=== PATIENT | male | born 1955 | race Caucasian/White ===

== ENCOUNTER 2017-07-14 09:26 | Inpatient (IN) | payer MEDICARE, OTHER ==
[~2017-07-14] VITALS: Ht 195.6 cm; Wt 136.1 kg
[~2017-07-14 09:26] MED LIST: ADULT LOW DOSE81 MG PO; BUPROPION XL300 MG PO; FENOFIBRATE48 MG PO; HYDROCHLOROTHIA25 MG PO; HYDROCODON-ACE1 EA10 PO; LISINOPRIL40 MG PO; MELOXICAM15 MG PO; METHOCARBAMOL750 MG PO; METOPROLOL SUCC25 MG PO; NITROSTAT0.4 MG SL; NORVASC5 MG PO; ZYLOPRIM300 MG PO
--- NOTE | 2017-07-28 09:55 | NUR ---
PT RETURNED FROM PACU ([id number]). PT AWAKE AND RESPONDING APPROPRIATLY TO QUESTIONS. SPINAL LEVEL AT T12. PT DENIES PAIN AND NAUSEA. PT TOLERATING SIPS OF WATER. PT VERBALIEZES UNDERSTANDING OF VOIDING EXPECTATIONS AND FALL PREVENTION. PT STATES HE WILL CALL IF HE FEELS LIKE HE NEEDS TO MOVE AT ALL. PT STATES NO REQEUSTS OR COMPLAINTS AT THIS TIME. BED RAILS UP, CALL LIGHT WITHIN REACH.
--- NOTE | 2017-07-28 10:03 | NUR ---
07/28/17 1003 Cynthia Hood 0900 RESP EVEN AND UNLABORED. PT DENINES PAIN AND NAUSEA. 0903 O2 REMOVED. VSS. 0910 XRAY AT [facility], CRYO CUFF IN PLACE. 09 MD AT [facility]. 0940 VSS HEADED TO [facility].
--- NOTE | 2017-07-28 10:40 | NUR ---
DAY SURGERY CALLED TO ASK TO COME TO MED/SURG PT ROOM. ARRIVED AND WAS WALKED TO PT ROOM. VISITING WITH PT. NO REQUESTS OR COMPLAINTS AT THIS TIME.
--- NOTE | 2017-07-28 11:00 | NUR ---
VITALS TAKEN. PT RESTING COMFORTABLY, DENIES PAIN AND NAUSEA. HEEL PROTECTORS PLACED. AT BEDSIDE. PT VISITING WITH . BED RAILS UP. CALL LIGHT WITHIN REACH.
--- NOTE | 2017-07-28 11:08 | NUR ---
INSENTIVE SPIROMETER PROVIDED FOR PT. EDUCATION ON USE GIVEN. PT DEMONSTRATES UNDERSTANDING. PT CONTINUES VISITING WITH . BED RAILS US. CALL LIGHT WITHIN REACH. BED ALARM ON.
--- NOTE | 2017-07-28 11:11 | OR ---
[facility] [place] [facility] [address], [place] [address] Signed DATE OF OPERATION: 07/28/2017 SURGEON: Sony Dao MD PREOPERATIVE DIAGNOSIS: Degenerative joint disease, severe right hip. POSTOPERATIVE DIAGNOSIS: Degenerative joint disease, severe right hip. PROCEDURE PERFORMED: Right total hip arthroplasty. STUDIO TECHNICIAN: Emma Richardson PA-C. Emma was critical for positioning and retraction and wound closure. ANESTHESIA: Spinal. BLOOD LOSS: 250 mL. IMPLANTS: Salazar secure fit advanced, size 9 stem, 60 mm PSL cup, and a +2.5 ceramic head. BRIEF HISTORY: Darian is a 61-year-old gentleman with end-stage arthritis in his hip. He had failed nonoperative treatment and wished to proceed with operative. Once medical clearance was obtained, he was taken to the operating room. After adequate anesthesia, he was placed on operating room table. All downside pressure points were well padded. He was placed in left lateral decubitus position. Axillary roll was placed. The leg was then prepped and draped in a standard sterile fashion up to the iliac crest. The hip was approached with the anterior lateral approach through a 6 inch incision. This was eventually extended to 7. It was taken through the skin and subcutaneous tissue. IT band was split longitudinally. The vastus lateralis was then split from the tip of the trochanter distally and elevated subperiosteally around the level of the lesser trochanter. Bleeders were cauterized as we went. The gluteus medius was split bluntly. Gluteus minimus and capsule were split sharply from the tip of the trochanter to the acetabulum. The capsule was quite thick and a posterior capsulotomy was performed. Electronically Signed By: SONY DAO MD 07/28/17 1111 PATIENT NAME: DARIAN ARNETT OPERATIVE REPORT DATE OF : 55 PHYSICIAN: SONY DAO MD REPORT #: [id number] REPORT IS CONFIDENTIAL AND NOT TO BE RELEASED WITHOUT AUTHORIZATION [facility] [place] [facility] [address], [place] [address] Signed Partial posterior capsulotomy was performed. The hip was then dislocated and the femoral neck cut was made 1 fingerbreadth above the lesser trochanter. The femoral head was removed. The periacetabular soft tissue was removed. There was extensive thickening of the labrum and capsule. The acetabulum was reamed starting with 46 going up to 60. The 60 cup was impacted in 45 degrees of abduction and 15 degrees of anteversion. It was quite stable. However, we did go ahead and place a screw in the posterior superior quadrant. The acetabular liner was then impacted in position. Attention was then turned to the proximal tibia. Proximal tibia was opened using vuie cutter followed by the Charaubrieey awl. It was then sequentially reamed up to a 10, 11 and broached up to a 9. The 9 was well fitting and left in position. The standard offset neck and posterior head were positioned. Hip was then reduced and taken through range of motion. It was a little bit loose, but otherwise had great range of motion. There was no impingement. The hip was dislocated again and the femoral trials were removed. The final stem was impacted until it was well seated at the same level as the trial. The +2.5 mm ceramic head was then positioned and impacted. The hip was reduced. It was quite tight at that point and had good range of motion. The wound was copiously irrigated at intervals throughout the procedure. A total of 3 L antibiotic irrigation was used. The periarticular soft tissues were injected with 100 mL ropivacaine and Toradol mixture. The hip capsule was then repaired using #1 Vicryl. The vastus lateralis and IT bands were repaired independently using #2 Stratafix, subcutaneous tissue with 0 Stratafix, and the skin with jorge l. Wound was dressed with a Mepilex Ag dressing, Opsite, and hip spica dressing. He was awakened and taken to recovery room in satisfactory condition. All sponge, needle, and instrument counts were correct. Sony Dao MD [id number] /[id number] Electronically Signed By: SONY DAO MD 07/28/17 1111 PATIENT NAME: DARIAN ARNETT OPERATIVE REPORT DATE OF : 55 PHYSICIAN: SNOY DAO MD REPORT #: [id number] REPORT IS CONFIDENTIAL AND NOT TO BE RELEASED WITHOUT AUTHORIZATION
--- NOTE | 2017-07-28 12:00 | NUR ---
VITALS TAKEN. PT EATING CLEAR LIQUIDS TRAY. PT CONTINUES TO DENY PAIN AND NAUSEA. SURGICAL SITE CLEAN, DRY AND INTACT. [facility] CHECK WNL. PT USING IS. PT ENCOURAGED TO LET THE NURSE KNOW IF HE BEGINS TO HAVE PAIN. PT STATES NO REQUESTS OR COMPLAINTS AT THIS TIME. BED RAILS UP, BED ALARM ON. CALL LIGHT WITHIN REACH.
[2017-07-28] MEDS ORDERED: METOPROLOL SUCC50 MG PO (12:22)
--- NOTE | 2017-07-28 12:47 | NUR ---
VITALS TAKEN PER ORDER. PT CONTINUES TO DENY PAIN AND NAUSEA. PT REPORTS ITCHING AND WOULD LIKE MEDICATION (SEE MAR FOR MEDICATION GIVEN). [facility] CHECK, WNL. BANDAGE CDI. CRYO CUFF IN PLACE. ABDUCTOR PILLOW IN PLACE. BED RAILS UP. CALL LIGHT WITHIN REACH.
--- NOTE | 2017-07-28 14:02 | NUR ---
ASSESSEMENT PERFORMED, VITALS DUE AND TAKEN. PT STILL UNABLE TO VOID. BLADDER SCAN PERFORMED, 301ML IN BLADDER. PT EDUCATION DONE R/T VOIDING. PT ADVISED THAT WE WILL RESCAN BLADDER IN ANOTHER HOUR. [facility] CHECK WNL. DRESSING CDI. CRYO CUFF IN PLACE, ABDUCTOR PILLOW IN PLACE. PT STATES "THE ITCHING IS MUCH BETTER NOW." BED RAILS UP, CALL LIGHT WITHIN REACH. PT HAS NO ADDITIONAL REQUESTS OR COMPLAINTS AT THIS TIME.
--- NOTE | 2017-07-28 14:56 | NUR ---
TYLENOL AND ANCEF GIVEN ORDERED (SEE MAR). PT RESTING WITH EYES CLOSED, RR 14 BPM. PT CONTINUES TO DENY PAIN AND NAUSEA. PT STATES HE IS READY TO GET UP AND MOVE AROUND SOON. RT NOTIFIED. BED RAILS UP. CALL LIGHT WITHIN REACH.
--- NOTE | 2017-07-28 15:40 | NUR ---
PT CALL LIGHT ON. PT REPORTS FEELING NAUSEATED. PT HAS NOT VOMITIED. EMISIS BAG PROVIDED. HEAD OF BED ELEVATED. ARMATURE WINDER REPAIR CALLED FOR ZOFRAN ORDER. CRAN ORDERS 4MG ZOFRAN IV ONCE. GIVEN ORDERED.
--- NOTE | 2017-07-28 15:54 | NUR ---
PT REPORTS IMPROVEMENTS IN NAUSEA. PT AT BEDSIDE. PT AMBULATING WITH PT. WITH PT. PT DENIES PAIN. MD STOPPED BY THE ROOM TO SEE PT. MD PLANS TO RETURN WHEN HE FINISHES HIS WALK.
--- NOTE | 2017-07-28 16:28 | NUR ---
PT RETURNED FROM WALK WITH PT. PT CONTINUES TO DENY PAIN AND REPORTS NO NAUSEA. MEDICATION GIVEN ORDERED (SEE MAR). PT RETURNED TO BED. SCDS ON, CRYO CUFF ON, IV INFUSING ORDERED. ABDUCTOR PILLOW IN PLACE. BED RAILS UP. CALL LIGHT WITHIN REACH. AT BEDSIDE. PT TALKING WITH PHARMACIST. NO REQUESTS OR COMPLAINTS AT THIS TIME.
--- NOTE | 2017-07-28 16:34 | NUR ---
CALLED R/T LACK OF VOID. STATES TO CONTINUE TO OBSERVE PT FOR "ANOTHER COUPLE HOURS" AND THEN PROCEED WITH ORDER FOR LARA IF NECESSARY.
--- NOTE | 2017-07-28 16:54 | NUR ---
FULL ASSESSMENT DONE. PT NOW DENIES NAUSEA BUT REPORTS 6/10 "ARTHRITIS" PAIN IN HIS NECK AND FINGERS. PT STATES THIS PAIN IS TOLERABLE AND THAT "I FEEL REALLY GOOD OVER ALL." JELLO PROVIDED PER PT REQUEST. PT TOLERATES JELLOW W/O NAUSEA. PT STATES HE WOULD LIKE SOME MORE FOOD. CRACKERS PROVIDED TO ASSESS ABILITY TO TOLERATE PO FOODS. HOSPITALIST AT BEDSIDE TALKING WITH PT AND . BED RAILS UP, CALL LIGHT WITHIN REACH, BED ALARM ON. PT HAS NO ADDITIONAL REQUESTS OR COMPLAINTS AT THIS TIME.
--- NOTE | 2017-07-28 17:01 | NUR ---
Medications reconciled using Dr Cisneros chart notes, pharmacy records and patient interview.
--- NOTE | 2017-07-28 17:25 | NUR ---
RIGHT HIP REPLACEMENT TODAY. PT HAS DENIED PAIN. SPINAL RESOLVED. ONE EPISODE OF NAUSEA, 4MG IV ZOFRAN GIVEN WITH GOOD RESULTS. NAUSEA RESOLVED AND PT TOELRATING PO FOOD AND FLUID. PT UP WITH PT, AMBULATES WELL, NO COMPLAINTS. PT HAS YET TO VOID. LAST BLADDER SCAN AT 1630 FOUND 377ML. MD AWARE. PO FLUIDS ENCOUARGED. PIV INFUSING, D5W/NS +20K. CMS CHECKS, WNL. DRESSING CDI. PT INVOLVED WITH CARE.
--- NOTE | 2017-07-28 18:08 | NUR ---
PT CALL LIGHT ON. PT REQUESTS TO GET UP TO REST ROOM. 2ND RN CALLED. PT ASSISTED OUT OF BED. PT TO REST ROOM, FRONT WHEEL WALKER ASSIST. PT VOIDS IN URINAL. PT BACK TO BED WITHOUT INCIDENT. PT DENIES PAIN AND NAUSEA. CRYO CUFF REFILLED WITH ICE AND REPLACED BACK TO PT. ABDUCTOR PILLOW IN PLACE. SCD'S ON. BED ALARM ON. PLUSE OX ON. PT HAS NO ADDITIONAL REQUESTS OR COMPLAINTS AT THIS TIME. PT WATCHING TV WITH .
--- NOTE | 2017-07-28 19:16 | NUR ---
IN ROOM FOR REPORT, PT HAS VISITOR. PT DENIES ANY NEEDS AT THIS TIME. CALL LIGHT IS WITHIN REACH.
--- NOTE | 2017-07-28 21:27 | NUR ---
ROUNDED CHARGE. PATIENT IS RESTING IN BED. PATIENT HAS CRYO IN PLACE. PATIENT DENIES ANY PAIN. PATIENTS ICE WATER REFILLED PER REQUEST. PATIENT HAS NO COMPLAINTS, COMMENTS, QUESTIONS, OR CONCERNS AT THIS TIME. CALL LIGHT IN REACH.
--- NOTE | 2017-07-28 22:00 | NUR ---
ASSESSED PT, HE STATES HE HAS FEELING BACK AFTER THE SPINAL BUT REPORTS NO HIP PAIN AT THIS TIME. PT HAS SOME NUMBNESS IN FEET WHICH IS BASELINE FOR HIM. DANELLE WRAP COVERING OPSITE AND NO DRAINAGE NOTED, CYRO IN PLACE. PT ALSO HAS ABD PILLOW, AES, SCDS AND HEEL PROTECTORS ON. RESPIRATIONS ARE EVEN AND NONLABORED, PT IS ON CONTINUOUS PULSEOX. EVENING MEDICATIONS GIVEN, WILL CONTINUE TO MONITOR PT'S URINE OUTPUT HE HAS NOT HAD MUCH SINCE SURGERY PER REPORT. PT DENIES ANY FURTHER REQUESTS AT THIS TIME.
--- NOTE | 2017-07-29 00:01 | NUR ---
ADMINISTERED OXYCODONE, PT HAS NO FURTHER REQUESTS AT THIS TIME. PT HAS CALL LIGHT WITHIN REACH, CYRO IN PLACE, AES, SCDS, HEEL PROTECTORS AND CONTINUOUS PULSEOX ON.
--- NOTE | 2017-07-29 01:41 | NUR ---
CRYO CUFF REFILLED.
--- NOTE | 2017-07-29 02:45 | NUR ---
BLADDER SCANNED PT AND GOT 570 AFTER PT JUST VOIDED ANOTHER SMALL AMOUNT. TALKED TO PT ABOUT LARA CATHETER AND RISK OF INFECTION/UTI/PAIN. WE DECIDED HE SHOULD STAND TO URINATE AND SEE IF THAT HELPS. HE THEN VOIDED 525. HELPED PT BACK TO BED AND REFILLED WATER, SL IV AT THIS TIME BECAUSE PT IS TOLERATING FLUIDS WELL.
--- NOTE | 2017-07-29 05:56 | NUR ---
PT SLEPT SOME OF THE NIGHT. HE HAD TROUBLE VOIDING IN BED BUT WHEN STANDING IS ABLE TO VOID QS. PT IS DRINKING PLENTY OF FLUIDS AND IV WAS SL. PT IS A 1PA WITH WALKER. DRESSING IS CDI, PT REQUIRED OXYCODONE X1 THROUGH THE NIGHT.
--- NOTE | 2017-07-29 06:43 | NUR ---
HELPED PT TO RESTROOM AND BACK TO BED, CALL LIGHT WITHIN REACH AND PT DENIES FURTHER NEEDS AND DENIES PAIN.
[2017-07-29] MEDS ORDERED: XARELTO10 MG PO (08:29)
[2017-07-29] MEDS ORDERED: DICLOFENAC SODI75 MG PO (08:30)
[2017-07-29] MEDS ORDERED: TAMSULOSIN HCL0.4 MG PO (08:30)
[2017-07-29] MEDS ORDERED: OXYCODONE HCL5 MG PO (08:31)
[2017-07-29] MEDS ORDERED: MAPAP500 M1 PO (08:31)
[2017-07-29] MEDS ORDERED: MIRALAX17 GM PO (08:31)
--- NOTE | 2017-07-29 08:45 | NUR ---
PT RESTING IN BED REPORTS PAIN WELL MANAGED AT THIS TIME, NO NAUSEA, GOOD NUTRITIONAL INTAKE THIS AM. AM MED PASS COMPLETE. DRESSING CDI
--- NOTE | 2017-07-29 08:55 | NUR ---
PATIENT SITTING UP IN BED. ORAL CARE DONE. HANDS AND FACE WASHED. FRESH ICE WATER GIVEN. NO OTHER NEEDS AT THIS TIME. RN IN ROOM TO PASS MEDICATION. CALL BUTTON IN REACH.
--- NOTE | 2017-07-29 09:50 | NUR ---
MORNING ASSESSEMENT PERFORMED. PT STATES 6/10 PAIN THAT IS ONLY PRESENT WHEN HE IS MOVING AROUND. PT STATES PAIN IS TOLERABLE FOR HIM AT THIS TIME. PT DENIES NAUSEA AND REPORTS MINOR ITCHING (BENADRYL GIVEN). PT VOIDING WITHOUT DIFFICTLY. PT MOVES WITH ONE PERSON STAND BY ASSIST. PHYSICAL THERAPY AT BEDSIDE, AMBULATING PT AROUND UNIT. PT HAS NO REQUESTS OR COMPLAINTS AT THIS TIME.
--- NOTE | 2017-07-29 10:01 | NUR ---
FAXED CHART NOTES TO INCLUDE FACESHEET, ORDER, H AND P, PROG NOTES, PT EVAL AND NOTES TO [facility] FOR A FRONT WHEELED WALKER. TALKED WITH MARSHA FROM [facility] AND THEY SAID THEY WOULD DELIVER IT BETWEEN 12:30 AD 1300 TODAY. INFORMED PT OF THIS. ALSO FAXED CHART NOTES TO [facility] TO INCLUDE FACESHEET, H AND P, PROG NOTE, PT EVAL AND NOTES, AND ORDER FOR PT. TALKED WITH MICHELLE ABOUT THIS AND SHE TOLD ME SHE HAD AN APPT TIME OF 0930 ON FRIDAY THE AND FOR PT TO BE THERE AT 0900. THIS INFORMATION WAS WRITTEN DOWN AND GIVEN TO PT WELL VERBALIZED TO PT WHO STATED UNDERSTANDING OF THIS.
--- NOTE | 2017-07-29 10:51 | NUR ---
PATIENT JUST GETTING BACK INTO BED FROM BATHROOM, OTHER JOCKEY'S AGENT ASSISTING. THIS JOCKEY'S AGENT REFILLED CRYO AND ASSISTED PATIENT IN PUTTING ON UNDERWEAR. CALL LIGHT IN REACH, NO OTHER NEEDS.
--- NOTE | 2017-07-29 11:09 | NUR ---
THIS RN WALKING BY PTS ROOM AND OBSERVED THAT PT WAS NOT SITUATED IN BED CORRECTLY. PT REPORTS 5/10 TOLERABLE PAIN. ABDUCTOR PILLOW, CRYO CUFF, AND SCD'S REAPPLIED. PT RESTING IN BED. NO COMPLAINTS. BED RAILS UP. CALL LIGHT WITHIN REACH. AT BEDSIDE.
--- NOTE | 2017-07-29 11:47 | NUR ---
FOCUSSED ASSESSMENT DONE. PT REQUESTS TO GET UP TO VOID. PT ASSISTED OUT OF BED, ONE PERSON STAND BY ASSIST. PT CAREFUL WITH MOVMENT AND FOLLOWS INSTRUCTIONS. PT ABLE TO VOID WITHOUT DIFFICULTY. PT BACK TO BED WITHOUT INCIDENT. CRYO CUFF, ABDUCTOR PILLOW, AND SCD'S REAPPLIED. PT REPORTING 6/10 PAIN THAT IS TOLERABLE FOR HIM AND IMPROVES WITH REST. PT DENIES NAUSEA. FAMILY AT BEDSIDE AND LEAVING TO FILL RX. BED RAILS UP. CALL LIGHT WITHIN REACH.
--- NOTE | 2017-07-29 13:14 | NUR ---
PT REPORTING 6/10 PAIN. SEE MAR FOR MEDICATION GIVEN. PT ALSO REPORTS ITCHING, BENEDRYL GIVEN. PT REQUESTS TO GET UP TO RESTROOM WITH WALKER ASSIST AND ONE PERSON STAND BY ASSIST. VOIDS 425ML WITHOUT ISSUE. PT BACK TO BED. CRYO CUFF, ABDUCTOR PILLOW AND SCD'S REAPPLIED. BED RAILS UP. CALL LIGHT WITHIN REACH. AT BEDSIDE. PT STATES NO ADDITIONAL REQUESTS OR COMPLAINTS AT THIS TIME.
--- NOTE | 2017-07-29 13:50 | NUR ---
PATIENT WORKING WITH PT.
--- NOTE | 2017-07-29 14:18 | NUR ---
PT BACK FROM PT. ABDUCTOR PILLLOW, CRYO CUFF, AND SCD'S REATTACHED TO PT. TYLENOL GIVEN ORDERED. PT REPORTING 0/10 PAIN AND DENIES NAUSEA. PT LOOKING THROUGH HOSPITAL INFORMATION AND WATCHING THE NEWS. NO ADDITIONAL REQUESTS AT THIS TIME. BED RAILS UP. CALL LIGHT WITHIN REACH.
--- NOTE | 2017-07-29 14:45 | NUR ---
PHYSICAL THERAPY CONSULTED AND STATES PT IS READY TO GO HOME. DR. BLUM CALLED AND STATES IT IS OK TO DISCHARGE PT PER ORDERS. PHARMACY NOTIFIED TO COME AND TALK WITH PT ABOUT MEDICATIONS. WALKER ARRIVED. THIS RN CHECKED ON PT TO NOTIFY HIM OF PLAN AND FOUND THAT PT WAS ALREADY UP AND DRESSED AT BEDSIDE. PT VERBALIZES UNDERSTANDING TO WAIT UNTIL DISCHARGE INSTRUCTIONS ARE COMPLETE. CRYO CUFF OPPERATION REVIEWED WITH PT AND . PT AND VERBALIEZE UNDERSTANDING OF INSTRUCTIONS. PHARMACY IN ROOM TALKING WITH PT.
--- NOTE | 2017-07-29 15:40 | NUR ---
PT FINISHED TALKING WITH PHARMACY REGARDING DISCHAREGE MEDICAITONS. VITALS TAKEN. PIV DC'D. DISHCARGE INSTRUCTIONS REVIEWED WITH PT. CRYO CUFF, WALKER, AND ABDUCTION PILLOW USE REVIEWED WITH PT. PT VERBALIZES UNDERSTANDING. PT DEMONSTRATES USE OF CRYO CUFF, ABDUCTION PILLOW AND WALKER. PT STATES HE UNDERSTANDS HOW AND WHEN TO TAKE HIS MEDICATIONS. PT TRANSFERS SELF TO WHEEL CHAIR. PULLING CAR TO FRONT OF HOSPITAL. PT WHEELED FROM MED/SURG WITH BELONGINGS AND INSTRUCTIONS. PT VERBAIZES UNDERSTANDING OF INSTRUCTIONS AND WHEN TO CALL THE DOCTOR.
== END 2017-07-29 15:30 | disposition home or self-care (01) | DRG 470 ==
LOC: DSVR 07-28 05:45 → MS 07-28 06:45
PROVIDERS: ADMIT Specialist
PROC: 0SR903A Replacement of Right Hip Joint with Ceramic Synthetic Substitute, Uncemented, Open Approach (ICD-10-PCS; principal; 2017-07-28 06:45)
DX: M16.11 Unilateral primary osteoarthritis, right hip (principal); I10 Essential (primary) hypertension; Z86.14 Personal history of Methicillin resistant Staphylococcus aureus infection; E78.5 Hyperlipidemia, unspecified; E79.0 Hyperuricemia without signs of inflammatory arthritis and tophaceous disease; F31.9 Bipolar disorder, unspecified
CPT/HCPCS: 01214; 36415; 72170; 80048; 85025; 94762; 97110; 97116; 97161; C1776; G8978; G8979; J0690; J2250; J2274; J2300; J2370; J2405; J2704; J3010; J3370; J7050; J7120

== ENCOUNTER 2017-08-23 13:34 | Emergency (ER) | payer MEDICARE, OTHER ==
[~2017-08-23] VITALS: Ht 195.6 cm; Wt 136.1 kg
[~2017-08-23 13:34] MED LIST changes: +DICLOFENAC SODI75 MG PO; +MAPAP500 M1 PO; +METOPROLOL SUCC50 MG PO; +MIRALAX17 GM PO; +OXYCODONE HCL5 MG PO; +TAMSULOSIN HCL0.4 MG PO; +XARELTO10 MG PO
[2017-08-23] MEDS ORDERED: LOVASTATIN40 MG PO (13:46)
--- NOTE | 2017-08-26 07:10 | CONS ---
[facility] [address], [place] [address] Signed DATE OF CONSULTATION: Mr. Arnett is a 61-year-old white male, who had a porous ingrowth, right total hip placed just about a month ago. Apparently yesterday, while he was in [place], [place], he was simply sitting in a chair and the hip spontaneously dislocated. He indicates he was taken to the local health care facility where under sedation it was reduced. He said he was doing fine until today. Again, he said he was sitting in his recliner when he just sort of felt the hip pop out. Again, he had severe pain, so he was brought by the paramedical service to the emergency room. He was evaluated by the emergency room doctor, who requested orthopedic consultation. On examination, he was lying supine with the leg shortening and significantly externally rotated. He has been having rather significant muscle spasms in his and in his hip abductors. His neurovascular exam is unremarkable. His x-rays are reviewed. He appears to have a porous ingrowth constructive that is dislocated anteriorly and superiorly. After explaining the treatment options, he was comfortable with another attempted sedation and closed reduction. We contacted the nurse septic tank cleaner on-call, Mrs. Bucio, and she calmly gave him a little sedation IV along with a little propofol. Once he appeared to be adequately sedated there, we actually were able to reduce the hip rather easily with a little longitudinal traction. The patient was then observed by the ER staff until he was ready to go home. He already has an appointment to see Dr. Dao on and I have encouraged him to keep that followup. In the interm, I suggested returning home and wearing his hip abduction brace would be a good idea. He was agreeable and will follow up as previously scheduled with Dr. Dao. Janet Pettit MD WFB/MODL /[id number] Copies: ~ Electronically Signed By: JANET PETTIT MD 08/26/17 0710 PATIENT NAME: DARIAN ARNETT CONSULTATION DATE OF : 55 REPORT #: [id number] PHYSICIAN: JANET PETTIT MD PCP: Gonzalo GALLEGO MD REPORT IS CONFIDENTIAL AND NOT TO BE RELEASED WITHOUT AUTHORIZATION
== END 2017-08-23 16:48 | disposition home or self-care (01) ==
LOC: ED 13:34
DX: T84.020A Dislocation of internal right hip prosthesis, initial encounter (principal); I10 Essential (primary) hypertension; Z96.641 Presence of right artificial hip joint; Z87.891 Personal history of nicotine dependence; Z79.899 Other long term (current) drug therapy; Z79.82 Long term (current) use of aspirin
CPT/HCPCS: 73501; 73502; 99156; 99157; 99283; J7120